=== PATIENT | female | born 1980 | race African-American/Black ===

== ENCOUNTER → 2017-05-12 | Outpatient (CLI) | payer MEDICAID ==
[~2017-05-12] MED LIST: ERGO500040 PO; GABA-826 PO; GLIP10TA13 PO; INSU100V8 SQ; LIRA0.6P SQ; METF10002 PO
== END ==
LOC: CFH 08:53
PROVIDERS: ATTEND Nurse Practitioner Primary Care
DX: M48.07 Spinal stenosis, lumbosacral region (principal); M48.061 Spinal stenosis, lumbar region without neurogenic claudication; M51.26 Other intervertebral disc displacement, lumbar region; M51.34 Other intervertebral disc degeneration, thoracic region; M47.896 Other spondylosis, lumbar region; G89.29 Other chronic pain; M79.604 Pain in right leg
CPT/HCPCS: 72110; 72148

== ENCOUNTER 2018-01-18 17:10 | Inpatient (IN) | payer MEDICAID ==
[~2018-01-18] VITALS: Ht 160 cm; Wt 134.9 kg
[~2018-01-18 17:10] MED LIST changes: +ALBU18HF INH; +CHOL400D3 PO; +DULA0.75 SC; +GLIP-164 PO
[2018-01-18] MEDS ORDERED: DIAZEPAM 5 MG TABLET PO ONE (17:30)
[2018-01-18] MEDS ORDERED: KETOROLAC 30 MG/1 ML IM ONE (17:30)
[2018-01-18] MEDS ORDERED: DIAZEPAM 5 MG TABLET ONE (17:33)
[2018-01-18] MEDS ORDERED: KETOROLAC 30 MG/1 ML ONE (17:33)
[2018-01-18] MEDS ORDERED: HYDROmorphone 2 MG/ML, 1ML ONE (17:59)
[2018-01-18] MEDS ORDERED: HYDROmorphone 2 MG/ML, 1ML IM ONE (18:00)
[2018-01-18] MEDS ORDERED: SODIUM CHLORIDE FLUSH 10ML SYR IVF PRN (19:30)
[2018-01-18] MEDS ORDERED: BISACODYL 10 MG SUPP PR PRN (20:00)
[2018-01-18] MEDS ORDERED: POLYETHYLENE GLYCOL 17 GM PACKET PO PRN (20:00)
[2018-01-18] MEDS ORDERED: (Dulaglutide (Trulicity) 0.75 MG) HOMEINJ SCH (20:00)
[2018-01-18] MEDS ORDERED: ONDANSETRON 2MG/ML, 2ML IVPush PRN (20:00)
[2018-01-18 20:25] VITALS: BP 112/72
[2018-01-18 20:30] VITALS: BP 112/72
[2018-01-18] MEDS ORDERED: ALBUTEROL SULFATE 2.5 MG/3 ML HHN PRN (20:30)
[2018-01-18] MEDS ORDERED: SODIUM CHLORIDE FLUSH 10ML SYR IVF SCH (21:00)
[2018-01-18] MEDS: METHOCARBAMOL 500 MG TABLET PO PRN (21:39)
[2018-01-18] MEDS: OXYcodone/APAP 5/325MG TABLET PO PRN (21:39)
[2018-01-18] MEDS: KETOROLAC 30 MG/1 ML IVPush SCH (21:40)
[2018-01-18] MEDS: HEPARIN 5,000 UNITS/ML, 1ML SQ SCH (21:40)
[2018-01-19] MEDS: OXYcodone/APAP 5/325MG TABLET PO PRN ×4 (01:40→20:04)
[2018-01-19 01:44] VITALS: BP 114/80
[2018-01-19] MEDS: KETOROLAC 30 MG/1 ML IVPush SCH ×4 (03:26→22:13)
[2018-01-19] MEDS: HEPARIN 5,000 UNITS/ML, 1ML SQ SCH ×3 (05:32→22:13)
[2018-01-19] MEDS: SENNA/DOCUSATE TABLET PO SCH (09:00)
[2018-01-19] MEDS: METHOCARBAMOL 500 MG TABLET PO PRN ×3 (09:01→22:12)
[2018-01-19 10:10] VITALS: BP 102/66
[2018-01-19 15:00] VITALS: BP 113/67
[2018-01-19 19:08] VITALS: BP 133/85
[2018-01-20 02:07] VITALS: BP 109/70
[2018-01-20] MEDS: OXYcodone/APAP 5/325MG TABLET PO PRN ×3 (04:28→15:56)
[2018-01-20] MEDS: HEPARIN 5,000 UNITS/ML, 1ML SQ SCH ×2 (04:29→13:30)
[2018-01-20] MEDS: KETOROLAC 30 MG/1 ML IVPush SCH ×3 (04:29→15:58)
[2018-01-20 07:25] VITALS: BP 107/71
[2018-01-20] MEDS: SENNA/DOCUSATE TABLET PO SCH (10:28)
[2018-01-20 14:30] VITALS: BP 127/81
[2018-01-20] MEDS ORDERED: OXYC1TAB7 PO (15:36)
[2018-01-20] MEDS ORDERED: METH500T7 PO (15:36)
[2018-01-20] MEDS ORDERED: IBUP-1222 PO (15:36)
[2018-01-20] MEDS ORDERED: POLY17PO5 PO (15:36)
[2018-01-21] MEDS ORDERED: ERGOCALCIFEROL 50,000 UNIT CAPSULE PO SCH (09:00)
== END 2018-01-20 17:10 | disposition home or self-care (01) | DRG 552 ==
LOC: ED 19:37 → EDIP 19:50 → 3NE 20:16
PROVIDERS: ADMIT Internal Medicine; ATTEND Internal Medicine
DX: M51.26 Other intervertebral disc displacement, lumbar region (principal); F11.20 Opioid dependence, uncomplicated; Z68.43 Body mass index [BMI] 50.0-59.9, adult; M51.27 Other intervertebral disc displacement, lumbosacral region; M51.37 Other intervertebral disc degeneration, lumbosacral region; E11.9 Type 2 diabetes mellitus without complications; E66.01 Morbid (severe) obesity due to excess calories; F41.9 Anxiety disorder, unspecified; G89.29 Other chronic pain; I10 Essential (primary) hypertension; R00.0 Tachycardia, unspecified; F32.9 Major depressive disorder, single episode, unspecified; Z98.84 Bariatric surgery status
CPT/HCPCS: 72110; 72148; 96372; 99285; J1170; J1644; J1885; J2405

== ENCOUNTER 2020-02-04 08:04 | Emergency (ER) | payer MEDICAID ==
[~2020-02-04] VITALS: Ht 160 cm; Wt 125.8 kg
[~2020-02-04 08:04] MED LIST changes: -GLIP-164 PO; +GLIP10TA24 PO; +IBUP-1222 PO; +METH500T7 PO; +OXYC1TAB7 PO; +POLY17PO5 PO
[2020-02-04 08:10] VITALS: BP 132/105
--- NOTE | 2020-02-04 08:17 | NUR ---
PATIENT ON WEDNESDAY WENT AND HAD A TOOTH PULLED RIGHT TOP IN THE BACK, AND THEN ON WED IT BEGAN HURTING, AND THE PAIN HAS SINCE GOTTEN WORSE. SHE WENT BACK TO [employer] ON WEDNESDAY. HE SAID THAT ITS FINE. PAIN CONTINUES TO INCREASE.
[2020-02-04] MEDS ORDERED: AMOX250C17 PO (08:26)
== END 2020-02-04 08:48 ==
LOC: ED 08:42
DX: R51 Headache (principal); K08.89 Other specified disorders of teeth and supporting structures; I10 Essential (primary) hypertension; E11.9 Type 2 diabetes mellitus without complications
CPT/HCPCS: 99281

== ENCOUNTER 2020-10-07 13:49 | Emergency (ER) | payer MEDICAID ==
[~2020-10-07] VITALS: Ht 160 cm; Wt 136.0 kg
[~2020-10-07 13:49] MED LIST changes: +AMOX250C17 PO; +METH-639 PO; -METH500T7 PO
--- NOTE | 2020-10-07 14:31 | NUR ---
FIRST CONTACT WITH PT. PT C/O CP RADIATING TO NECK WITH SOB X 3 DAYS. PT'S AOX4. RESPS EVEN AND UNLABORED. DENIES ANY OTHER SYMPTOMS. ALL MONITORS IN PLACE. CALL LIGHT WITHIN REACH.
[2020-10-07 14:37] LABS: BASOPHILS % (AUTO) 1 % (0-1); EOSINOPHILS % (AUTO) 1 % (1-7); LYMPHOCYTES % (AUTO) 21 % (22-44); MEAN CORPUSCULAR HEMOGLOBIN 26.2 pg (27.0-34.8); MEAN CORPUSCULAR HGB CONC 32.8 g/dL (32.4-35.8); MEAN PLATELET VOLUME 7.5 fL (7.4-10.4); MONOCYTES % (AUTO) 8 % (2-9); NEUTROPHILS % (AUTO) 69 % (42-75); PLATELET COUNT 291 x10^3/uL (130-400); RED BLOOD COUNT 4.64 x10^6/uL (3.82-5.3); RED CELL DISTRIBUTION WIDTH 15.5 % (9.6-15.2)
[2020-10-07 14:45] LABS: MD NO
[2020-10-07 14:48] LABS: ALANINE AMINOTRANSFERASE 17 U/L (12-78); ALBUMIN 3.4 g/dL (3.4-5.0); ANION GAP 3 mmol/L (5-15); CALCIUM 8.6 mg/dL (8.5-10.1); CHLORIDE 108 mmol/L (98-107); CREATININE 0.85 mg/dL (0.55-1.02)
[2020-10-07 14:54] LABS: ALKALINE PHOSPHATASE 53 U/L (45-117); BILIRUBIN,TOTAL 0.2 mg/dL (0.2-1.0); TOTAL PROTEIN 7.5 g/dL (6.4-8.2); TROPONIN I < 0.015 ng/mL (0.000-0.045)
--- NOTE | 2020-10-07 15:10 | NUR ---
PT RESTING IN [facility]. RESPS EVEN AND UNLABORED. VSS.
--- NOTE | 2020-10-07 15:36 | NUR ---
PT AMB TO BR WITH STEADY GAIT.
--- NOTE | 2020-10-07 16:09 | NUR ---
RADIOLOGY PAGED AGAIN AT THIS TIME.
--- NOTE | 2020-10-07 16:10 | NUR ---
PT RESTING IN [facility]. PT'S AOX4. RESPS EVEN AND UNLABORED. PT DENIES ANY NEEDS OR CONCERNS AT THIS TIME.
[2020-10-07 17:19] VITALS: BP 108/90
--- NOTE | 2020-10-07 17:19 | NUR ---
PT RESTING IN [facility]. PT'S AOX4. RESPS EVEN AND UNLABORED. AWAITING DISPO.
--- NOTE | 2020-10-07 18:11 | NUR ---
Patient given discharge instructions and they have confirmed that they understand the instructions. Patient ambulatory with steady gait.
== END 2020-10-07 18:12 | disposition home or self-care (01) ==
LOC: ED 18:00
DX: R07.89 Other chest pain (principal); R06.02 Shortness of breath; E11.9 Type 2 diabetes mellitus without complications; Z90.49 Acquired absence of other specified parts of digestive tract
CPT/HCPCS: 36415; 71045; 80053; 84443; 84484; 85025; 93005; 99285

== ENCOUNTER 2021-01-22 07:52 | Emergency (ER) | payer MEDICAID ==
[~2021-01-22] VITALS: Ht 160 cm; Wt 135.6 kg
[2021-01-22 08:59] LABS: BASOPHILS % (AUTO) 1 % (0-1); EOSINOPHILS % (AUTO) 2 % (1-7); LYMPHOCYTES % (AUTO) 16 % (22-44); MEAN CORPUSCULAR HEMOGLOBIN 26.1 pg (27.0-34.8); MEAN CORPUSCULAR HGB CONC 32.7 g/dL (32.4-35.8); MEAN PLATELET VOLUME 7.5 fL (7.4-10.4); MONOCYTES % (AUTO) 7 % (2-9); NEUTROPHILS % (AUTO) 74 % (42-75); PLATELET COUNT 302 x10^3/uL (130-400); RED BLOOD COUNT 4.75 x10^6/uL (3.82-5.3); RED CELL DISTRIBUTION WIDTH 14.6 % (9.6-15.2)
[2021-01-22 09:04] LABS: ANION GAP 5 mmol/L (5-15); CALCIUM 8.7 mg/dL (8.5-10.1); CHLORIDE 107 mmol/L (98-107)
--- NOTE | 2021-01-22 09:04 | NUR ---
Per [place], no need to obtain IV access at this time.
--- NOTE | 2021-01-22 09:05 | NUR ---
This pt tested positive for COVID-19 in August, states she was around multiple visitors last week, at least one of whom was coughing. Pt reports mild fatigue, cough and phlem x a couple days, states it's similar to symptoms from previous COVID infection. Conneted to BP and O2 monitors, ASHLYN. Call light in reach.
[2021-01-22 09:10] LABS: ALANINE AMINOTRANSFERASE 27 U/L (12-78); ALKALINE PHOSPHATASE 58 U/L (45-117); BILIRUBIN,TOTAL 0.3 mg/dL (0.2-1.0); CREATININE 0.76 mg/dL (0.55-1.02); TOTAL PROTEIN 7.1 g/dL (6.4-8.2)
[2021-01-22 10:48] VITALS: BP 124/71
== END 2021-01-22 10:50 | disposition home or self-care (01) ==
LOC: ED 08:03
DX: B34.9 Viral infection, unspecified (principal); Z20.822 Contact with and (suspected) exposure to COVID-19; I10 Essential (primary) hypertension; R50.9 Fever, unspecified; R94.31 Abnormal electrocardiogram [ECG] [EKG]; E11.649 Type 2 diabetes mellitus with hypoglycemia without coma
CPT/HCPCS: 71045; 80053; 84145; 84703; 85025; 93005; 99285; U0003; U0005